=== PATIENT | female | born 1965 | race Caucasian/White ===

== ENCOUNTER → 2017-07-04 | Outpatient (CLI) | payer BC ==
--- NOTE | 2017-07-05 09:46 | MM ---
Reason for exam: screening (asymptomatic). Last mammogram was performed 1 year and 3 months ago. History: Taking estrogen beginning at age 52. Physical Findings: A clinical breast exam by your physician is recommended on an annual basis and results should be correlated with mammographic findings. MG 3D Screening Mammo W/Cad Bilateral CC and MLO view(s) were taken. Prior study comparison: April 12, 2016, bilateral MG screening mammo w CAD. January 20, 2015, bilateral MG screening mammo w CAD. The breast tissue is heterogeneously dense. This may lower the sensitivity of mammography. No suspicious abnormality. No significant changes when compared with prior studies. ASSESSMENT: Negative, BI-RAD 1 RECOMMENDATION: Routine screening mammogram of both breasts in 1 year.
== END | disposition home or self-care (01) ==
LOC: RADMAMWWP 10:57
PROVIDERS: ATTEND Obstetrics & Gynecology
DX: Z12.31 Encounter for screening mammogram for malignant neoplasm of breast (principal)
CPT/HCPCS: 77063; G0202

== ENCOUNTER → 2018-09-09 | Outpatient (CLI) | payer BC ==
--- NOTE | 2018-09-10 11:56 | MM ---
Reason for exam: screening (asymptomatic). Last mammogram was performed 1 year and 2 months ago. History: Taking estrogen beginning at age 52. Physical Findings: A clinical breast exam by your physician is recommended on an annual basis and results should be correlated with mammographic findings. MG 3D Screening Mammo W/Cad Bilateral CC and MLO view(s) were taken. Prior study comparison: July 04, 2017, bilateral MG 3d screening mammo w/cad. April 12, 2016, bilateral MG screening mammo w CAD. The breast tissue is heterogeneously dense. This may lower the sensitivity of mammography. Stable benign calcifications in the left breast. There is no discrete abnormality. No significant changes when compared with prior studies. ASSESSMENT: Benign, BI-RAD 2 RECOMMENDATION: Routine screening mammogram of both breasts in 1 year.
== END | disposition home or self-care (01) ==
LOC: RADMAMWWP 08:22
PROVIDERS: ATTEND Obstetrics & Gynecology
DX: Z12.31 Encounter for screening mammogram for malignant neoplasm of breast (principal)
CPT/HCPCS: 77063; 77067

== ENCOUNTER → 2018-10-23 | Outpatient (CLI) | payer BC ==
--- NOTE | 2018-10-23 11:55 | XR ---
EXAMINATION TYPE: XR chest 2V DATE OF EXAM: 10/23/2018 COMPARISON: None INDICATION: Pneumonia TECHNIQUE: Frontal and lateral views of the chest are obtained. FINDINGS: The heart size is normal. The pulmonary vasculature is normal. The lungs are clear. IMPRESSION: 1. No acute pulmonary process.
== END | disposition home or self-care (01) ==
LOC: RADXRMAIN 11:23
PROVIDERS: ATTEND Family Medicine
DX: J18.9 Pneumonia, unspecified organism (principal)
CPT/HCPCS: 71046

== ENCOUNTER → 2019-05-23 | Outpatient (CLI) | payer BC | END | disposition home or self-care (01) | LOC: LABWHC1 14:16 | PROVIDERS: ATTEND Orthopaedic Surgery | DX: E55.9 Vitamin D deficiency, unspecified (principal) | CPT/HCPCS: 36415; 82306 ==

== ENCOUNTER → 2020-07-14 | Outpatient (CLI) | payer BC ==
--- NOTE | 2020-07-19 08:29 | MM ---
Reason for exam: screening (asymptomatic). Last mammogram was performed 1 year and 10 months ago. History: Taking estrogen beginning at age 52. Physical Findings: A clinical breast exam by your physician is recommended on an annual basis and results should be correlated with mammographic findings. MG 3D Screening Mammo W/Cad Bilateral CC and MLO view(s) were taken. Prior study comparison: September 09, 2018, bilateral MG 3d screening mammo w/cad. July 04, 2017, bilateral MG 3d screening mammo w/cad. The breast tissue is extremely dense which could obscure a lesion on mammography. No significant changes when compared with prior studies. ASSESSMENT: Benign, BI-RAD 2 RECOMMENDATION: Routine screening mammogram of both breasts in 1 year.
== END | disposition home or self-care (01) ==
LOC: RADMAMWWP 11:22
PROVIDERS: ATTEND Obstetrics & Gynecology
DX: Z12.31 Encounter for screening mammogram for malignant neoplasm of breast (principal)
CPT/HCPCS: 77063; 77067

== ENCOUNTER → 2021-09-05 | Outpatient (CLI) | payer BC ==
--- NOTE | 2021-09-06 11:49 | MM ---
Reason for exam: screening (asymptomatic). Last mammogram was performed 1 year and 2 months ago. History: Taking estrogen beginning at age 52. Physical Findings: A clinical breast exam by your physician is recommended on an annual basis and results should be correlated with mammographic findings. MG 3D Screening Mammo W/Cad Bilateral CC and MLO view(s) were taken. Prior study comparison: July 14, 2020, bilateral MG 3d screening mammo w/cad. September 09, 2018, bilateral MG 3d screening mammo w/cad. The breast tissue is heterogeneously dense. This may lower the sensitivity of mammography. There are benign appearing round calcifications in the left breast. There is no discrete abnormality. ASSESSMENT: Benign, BI-RAD 2 RECOMMENDATION: Routine screening mammogram of both breasts in 1 year.
== END | disposition home or self-care (01) ==
LOC: RADMAMWWP 11:23
PROVIDERS: ATTEND Obstetrics & Gynecology
DX: Z12.31 Encounter for screening mammogram for malignant neoplasm of breast (principal)
CPT/HCPCS: 77063; 77067

== ENCOUNTER 2023-07-18 02:18 | Observation (INO) | payer BC ==
--- NOTE | 2023-07-18 02:54 | ED ---
Abdominal Pain HPI - General Chief Complaint: Abdominal Pain Stated Complaint: Abd Pain Time Seen by Provider: 07/18/23 02:28 Source: patient, RN notes reviewed, old records reviewed Mode of arrival: wheelchair Limitations: no limitations - History of Present Illness Initial Comments: This is a 58-year-old female to the emergency room today for evaluation. Patient is today for evaluation of left lower quadrant abdominal pain significant left-sided abdominal pain with radiation to the groin. Radiation to the back. No fevers mild nausea no diarrhea no dysuria. Patient has had multiple substances abdominal pain this week but this is the worst event. No prior evaluation. Patient denies any fevers or other complaint. Patient is in significant distress with severe uncontrolled pain MD Complaint: abdominal pain -: week(s) Location: LLQ, suprapubic Radiation: suprapubic, L flank Migration to: epigastric Severity: severe Severity scale (1-10): 8 Quality: cramping, stabbing Consistency: intermittent Improves With: nothing Worsens With: nothing Associated Symptoms: nausea Treatments Prior to Arrival: other (0) - Related Data Home Medications Medication Instructions Recorded Confirmed Bentyl (Unknown Dose) 1 tab PO DAILY PRN 07/18/23 07/18/23 Desloratadine [Clarinex] 5 mg PO DAILY 07/18/23 07/18/23 Fremanezumab-Vfrm [Ajovy 225 mg SQ QMONTHLY 07/18/23 07/18/23 Autoinjector] Previous Rx's Medication Instructions Recorded HYDROcodone/APAP 5-325MG [Wilmar 1 tab PO Q6HR PRN 3 Days #12 tab 07/19/23 5-325] Ondansetron Odt [Zofran Odt] 4 mg PO Q8HR PRN 3 Days #9 tab 07/19/23 cephALEXin [Keflex] 750 mg PO Q12HR 7 Days #14 cap 07/19/23 Allergies Allergy/AdvReac Type Severity Reaction Status Date / Time No Known Allergies Allergy Verified 07/18/23 09:15 Review of Systems ROS Statement: Those systems with pertinent positive or pertinent negative responses have been documented in the HPI. ROS Other: All systems not noted in ROS Statement are negative. Past Medical History Additional Past Medical History / Comment(s): IBS History of Any Multi-Drug Resistant Organisms: None Reported Past Surgical History: Appendectomy, Cholecystectomy Smoking Status: Never smoker Past Alcohol Use History: Occasional Past Drug Use History: None Reported General Exam Limitations: no limitations General appearance: alert, in no apparent distress, anxious Head exam: Present: atraumatic, normocephalic, normal inspection Eye exam: Present: normal appearance, PERRL, EOMI. Absent: scleral icterus, conjunctival injection, periorbital swelling ENT exam: Present: normal exam, mucous membranes moist Neck exam: Present: normal inspection. Absent: tenderness, meningismus, lymphadenopathy Respiratory exam: Present: normal lung sounds bilaterally. Absent: respiratory distress, wheezes, rales, rhonchi, stridor Cardiovascular Exam: Present: regular rate, normal rhythm, normal heart sounds. Absent: systolic murmur, diastolic murmur, rubs, gallop, clicks GI/Abdominal exam: Present: soft, normal bowel sounds. Absent: distended, te nderness, guarding, rebound, rigid Extremities exam: Present: normal inspection, full ROM, normal capillary refill. Absent: tenderness, pedal edema, joint swelling, calf tenderness Back exam: Present: normal inspection Neurological exam: Present: alert, oriented X3, CN II-XII intact Psychiatric exam: Present: normal affect, normal mood Skin exam: Present: warm, dry, intact, normal color. Absent: rash Course Vital Signs 07/18/23 07/18/23 07/18/23 02:23 04:26 05:33 Temperature 98 F Pulse Rate 86 90 96 Respiratory 18 16 16 Rate Blood Pressure 136/82 131/72 113/60 O2 Sat by Pulse 98 94 L 100 Oximetry 07/18/23 07:44 Temperature Pulse Rate 90 Respiratory 16 Rate Blood Pressure 93/61 O2 Sat by Pulse 100 Oximetry - Reevaluation(s) Reevaluation #1: 07/18/23 05:37 Medical record is reviewed Reevaluation #2: 07/18/23 05:37 Patient symptoms are improving Reevaluation #3: Patient informed results and questions answered Reevaluation #4: 07/18/23 05:37 Was pt. sent in by a medical professional or institution (, PA, MENTALLY RETARDED TEACHER, urgent care, hospital, or longterm...) When possible be specific @ -no Did you speak to anyone other than the patient for history (EMS, parent, family, police, friend...)? What history was obtained from this source @ -no Did you review nursing and triage notes (agree or disagree)? Why? @ -agree Are old charts reviewed (outside hosp., previous admission, EMS record, old EKG, old radiological studies, urgent care reports/EKG's, longterm records)? Report findings @ -yes Differential Diagnosis (chest pain, altered mental status, abdominal pain women, abdominal pain men, vaginal bleeding, weakness, fever, dyspnea, syncope, headache, dizziness, GI bleed, back pain, seizure, CVA, palpatations, mental health, musculoskeletal)? @ -prior EKG interpreted by me (3pts min.). @ -no X-rays interpreted by me (1pt min.). @ -no CT interpreted by me (1pt min.). @ -yes U/S interpreted by me (1pt. min.). @ -no What testing was considered but not performed or refused? (CT, X-rays, U/S, labs)? Why? @ -none What meds were considered but not given or refused? Why? @ -none Did you discuss the management of the patient with other professionals (professionals i.e. , PA, MENTALLY RETARDED TEACHER, lab, RT, psych nurse, social media manager, immigration lawyer, teacher, commercial loan officer, medical case manager)? Give summary @ -no Was smoking cessation discussed for >3mins.? @ -no Was critical care preformed (if so, how long)? @ -no Were there social determinants of health that impacted care today? How? (Homelessness, low income, unemployed, alcoholism, drug addiction, transportation, low edu. Level, literacy, decrease access to med. care, group home, rehab)? @ -none Was there de-escalation of care discussed even if they declined (Discuss DNR or withdrawal of care, Hospice)? DNR status @ -no What co-morbidities impacted this encounter? (DM, HTN, Smoking, COPD, CAD, Cancer, CVA, ARF, Chemo, Hep., AIDS, mental health diagnosis, sleep apnea, morbid obesity)? @ -none Was patient admitted / discharged? Hospital course, mention meds given and route, prescriptions, significant lab abnormalities, going to OR and other pertinent info. @ - 58 female to the emergency department for evaluation severe abdominal pain with kidney stone. Significantly large kidney stone with urinary tract infection. Will be admitted for IV antibiotics pain control and urology to see and treat Admitted Undiagnosed new problem with uncertain prognosis? @ -no Drug Therapy requiring intensive monitoring for toxicity (Heparin, Nitro, Insulin, Cardizem)? @ -no Were any procedures done? @ -no Diagnosis/symptom? @ -UTI, kidney stone with obstruction and hydronephrosis Acute, or Chronic, or Acute on Chronic? @ -Acute Uncomplicated (without systemic symptoms) or Complicated (systemic symptoms)? @ -Complicated Side effects of treatment? @ -no Exacerbation, Progression, or Severe Exacerbation? @ -exacerbation Poses a threat to life or bodily function? How? (Chest pain, [place], [place], pneumonia, PE, COPD, DKA, ARF, appy, cholecystitis, CVA, Diverticulitis, Homicidal, Suicid al, threat to staff... and all critical care pts) @ -yes with possible septic kidney stone Reevaluation #5: 07/18/23 05:37 Differential Abdominal Pain Women: Appendicitis, Cholecystitis, diverticulosis, ischemic bowel, pancreatitis, hepatitis, UTI, gastroenteritis, AAA, incarcerated hernia, bowel obstruction, constipation, inflammatory bowel, hepatitis, peptic ulcer disease, splenic infarction, perforated viscus, vulvitis, ovarian torsion, PID, kidney stone, placenta abruption, this is not meant to be an all-inclusive list - Consultations Consultation #1: Spoke with admitting physicians who agreed to admit patient Consultation #2: Spoke with Dr. Oneil urology who will see the patient Medical Decision Making - Medical Decision Making 58 female to the emergency department for evaluation severe abdominal pain with kidney stone. Significantly large kidney stone with urinary tract infection. Will be admitted for IV antibiotics pain control and urology to see and treat - Lab Data Result diagrams: 07/19/23 06:14 07/19/23 06:14 Lab Results 07/18/23 07/18/23 07/18/23 Range/Units 02:50 02:50 02:50 WBC 11.2 H (3.8-10.6) k/uL RBC 4.42 (3.80-5.40) m/uL Hgb 13.5 (11.4-16.0) gm/dL Hct 41.1 (34.0-46.0) % MCV 93.0 (80.0-100.0) fL MCH 30.7 (25.0-35.0) pg MCHC 32.9 (31.0-37.0) g/dL RDW 12.6 (11.5-15.5) % Plt Count 218 (150-450) k/uL MPV 7.4 Neutrophils % 76 % Lymphocytes % 17 % Monocytes % 5 % Eosinophils % 1 % Basophils % 0 % Neutrophils # 8.5 H (1.3-7.7) k/uL Lymphocytes # 1.9 (1.0-4.8) k/uL Monocytes # 0.5 (0-1.0) k/uL Eosinophils # 0.1 (0-0.7) k/uL Basophils # 0.0 (0-0.2) k/uL Sodium 139 (137-145) mmol/L Potassium 3.9 (3.5-5.1) mmol/L Chloride 105 (98-107) mmol/L Carbon Dioxide 23 (22-30) mmol/L Anion Gap 11 mmol/L BUN 24 H (7-17) mg/dL Creatinine 1.18 H (0.52-1.04) mg/dL Est GFR (CKD-EPI)AfAm 59 (>60 ml/min/1.73 sqM) Est GFR (CKD-EPI)NonAf 52 (>60 ml/min/1.73 sqM) Glucose 117 H (74-99) mg/dL Plasma Lactic Acid Dheeraj 0.7 (0.7-2.0) mmol/L Calcium 9.6 (8.4-10.2) mg/dL Total Bilirubin 0.6 (0.2-1.3) mg/dL AST 23 (14-36) U/L ALT 21 (4-34) U/L Alkaline Phosphatase 79 (38-126) U/L Total Protein 7.3 (6.3-8.2) g/dL Albumin 4.4 (3.5-5.0) g/dL Amylase 59 (30-110) U/L Lipase 100 (23-300) U/L Urine Color Urine Appearance (Clear) Urine pH (5.0-8.0) Ur Specific [place] (1.001-1.035) Urine Protein (Negative) Urine Glucose (UA) (Negative) Urine Ketones (Negative) Urine Blood (Negative) Urine Nitrite (Negative) Urine Bilirubin (Negative) Urine Urobilinogen (<2.0) mg/dL Ur Leukocyte Esterase (Negative) Urine RBC (0-5) /hpf Urine WBC (0-5) /hpf Ur Squamous Epith Cells (0-4) /hpf Urine Bacteria (None) /hpf Urine Mucus (None) /hpf 07/18/23 Range/Units 04:18 WBC (3.8-10.6) k/uL RBC (3.80-5.40) m/uL Hgb (11.4-16.0) gm/dL Hct (34.0-46.0) % MCV (80.0-100.0) fL MCH (25.0-35.0) pg MCHC (31.0-37.0) g/dL RDW (11.5-15.5) % Plt Count (150-450) k/uL MPV Neutrophils % % Lymphocytes % % Monocytes % % Eosinophils % % Basophils % % Neutrophils # (1.3-7.7) k/uL Lymphocytes # (1.0-4.8) k/uL Monocytes # (0-1.0) k/uL Eosinophils # (0-0.7) k/uL Basophils # (0-0.2) k/uL Sodium (137-145) mmol/L Potassium (3.5-5.1) mmol/L Chloride (98-107) mmol/L Carbon Dioxide (22-30) mmol/L Anion Gap mmol/L BUN (7-17) mg/dL Creatinine (0.52-1.04) mg/dL Est GFR (CKD-EPI)AfAm (>60 ml/min/1.73 sqM) Est GFR (CKD-EPI)NonAf (>60 ml/min/1.73 sqM) Glucose (74-99) mg/dL Plasma Lactic Acid Dheeraj (0.7-2.0) mmol/L Calcium (8.4-10.2) mg/dL Total Bilirubin (0.2-1.3) mg/dL AST (14-36) U/L ALT (4-34) U/L Alkaline Phosphatase (38-126) U/L Total Protein (6.3-8.2) g/dL Albumin (3.5-5.0) g/dL Amylase (30-110) U/L Lipase (23-300) U/L Urine Color Colorless Urine Appearance Clear (Clear) Urine pH 6.0 (5.0-8.0) Ur Specific [place] 1.036 H (1.001-1.035) Urine Protein Negative (Negative) Urine Glucose (UA) Negative (Negative) Urine Ketones 1+ H (Negative) Urine Blood Moderate H (Negative) Urine Nitrite Positive H (Negative) Urine Bilirubin Negative (Negative) Urine Urobilinogen <2.0 (<2.0) mg/dL Ur Leukocyte Esterase Moderate H (Negative) Urine RBC 37 H (0-5) /hpf Urine WBC 26 H (0-5) /hpf Ur Squamous Epith Cells 5 H (0-4) /hpf Urine Bacteria Rare H (None) /hpf Urine Mucus Rare H (None) /hpf - EKG Data -: EKG Interpreted by Me (EKG is sinus tachycardia 104 CA 190 QRS 73 QTC 392) - Radiology Data Radiology results: report reviewed (CT head and pelvis is positive for kidney s tone obstruction with hydronephrosis), image reviewed Disposition Clinical Impression: Left ureteral stone, Abdominal pain, UTI (urinary tract infection) Disposition: ADMITTED IP TO THIS HOSP Condition: Fair Is patient prescribed a controlled substance at d/c from ED?: No Time of Disposition: 07:20
[2023-07-18] MEDS ORDERED: ONDANSETRON 4 MG/2 ML VIAL IVP STA (03:36)
[2023-07-18] MEDS ORDERED: SODIUM CHLORIDE 0.9% 1,000 ML IV STA (03:36)
[2023-07-18] MEDS ORDERED: PANTOPRAZOLE 40 MG/10 ML VIAL IVP STA (03:36)
[2023-07-18] MEDS ORDERED: MORPHINE SULFATE 4 MG/ML SYRINGE IVP STA (03:37)
[2023-07-18 03:46] LABS: Basophils % (A) 0 %; Eosinophils # (A) 0.1 k/uL (0-0.7); Eosinophils % (A) 1 %; HCT 41.1 % (34.0-46.0); HGB 13.5 gm/dL (11.4-16.0); Lymphocytes # (A) 1.9 k/uL (1.0-4.8); Lymphocytes % (A) 17 %; MCH 30.7 pg (25.0-35.0); MCHC 32.9 g/dL (31.0-37.0); Mean Platelet Volume 7.4; Monocytes # (A) 0.5 k/uL (0-1.0); Monocytes % (A) 5 %; Neutrophils # (A) 8.5 k/uL (1.3-7.7); Neutrophils % (A) 76 %; Platelet Count 218 k/uL (150-450); RBC 4.42 m/uL (3.80-5.40); RDW 12.6 % (11.5-15.5); WBC 11.2 k/uL (3.8-10.6)
[2023-07-18 03:50] LABS: ALT 21 U/L (4-34); AST 23 U/L (14-36); African American GFR (CKD) 59 (>60 ml/min/1.73 sqM); Albumin 4.4 g/dL (3.5-5.0); Alkaline Phosphatase 79 U/L (38-126); Amylase 59 U/L (30-110); Anion Gap 11 mmol/L; Blood Urea Nitrogen 24 mg/dL (7-17); Calcium 9.6 mg/dL (8.4-10.2); Carbon Dioxide 23 mmol/L (22-30); Chloride 105 mmol/L (98-107); Glucose 117 mg/dL (74-99); Lipase 100 U/L (23-300); Non-African American GFR(CKD) 52 (>60 ml/min/1.73 sqM); Potassium 3.9 mmol/L (3.5-5.1); Sodium 139 mmol/L (137-145); Total Bilirubin 0.6 mg/dL (0.2-1.3); Total Protein 7.3 g/dL (6.3-8.2)
[2023-07-18] MEDS ORDERED: HYDROmorphone 1 MG/ML 1 ML SYRINGE IVP STA (03:58)
[2023-07-18] MEDS ORDERED: KETOROLAC 15 MG/ML 1 ML VIAL IVP STA (03:59)
[2023-07-18 04:34] LABS: Appearance,Urine Clear (Clear); Bacteria,Urine Rare /hpf; Bilirubin,Urine Negative (Negative); Blood,Urine Moderate (Negative); Color,Urine Colorless; Glucose,Urine (UA) Negative (Negative); Ketones,Urine 1+ (Negative); Leukocyte Esterase,Urine Moderate (Negative); Mucus,Urine Rare /hpf; Nitrite,Urine Positive (Negative); Protein,Urine Negative (Negative); RBC,Urine 37 /hpf (0-5); Specific Gravity,Urine 1.036 (1.001-1.035); Squamous Epithelial Cell,Urine 5 /hpf (0-4); Urobilinogen,Urine <2.0 mg/dL (<2.0); WBC,Urine 26 /hpf (0-5)
--- NOTE | 2023-07-18 07:10 | CT ---
EXAMINATION TYPE: CT abdomen pelvis w con DATE OF EXAM: 07/18/2023 COMPARISON: None HISTORY: Pain CONTRAST: CT scan of the abdomen and pelvis is performed without Oral Contrast and with IV Contrast, patient in jected with 100 mL of Isovue 300. FINDINGS: LUNG BASES-: No visible nodule. No infiltrate. LIVER/GB: The gallbladder surgically absent. No space occupying hepatic lesion. Biliary tree is of normal caliber. PANCREAS: No inflammation. No distinct mass. SPLEEN: No splenic enlargement. No lesion seen. ADRENALS: No nodule. No thickening. KIDNEYS/BLADDER: Distal left ureteral calculus measuring 10 x 4 mm approximately 7.5 cm from the left UVJ results in moderate left-sided hydroureter ureteral nephrosis.. Mild left renal edema and perine phric stranding. The right kidney is free of hydronephrosis or nephrolithiasis. No renal masses are d etected. BOWEL: Normal appendix. Normal bowel caliber. No inflammation. GENITAL ORGANS: No gross abnormality. LYMPH NODES: No greater than 1cm abdominal or pelvic lymph nodes are appreciated. AORTA: No significant abnormality. OSSEOUS STRUCTURES: No significant abnormality is seen. OTHER: No significant additional abnormality is seen. IMPRESSION: 1. Distal left ureteral calculus measuring 10 x 4 mm approximately 7.5 cm from the left UVJ results i n moderate left-sided hydrouretero nephrosis. Mild left renal edema and perinephric stranding.
[2023-07-18] MEDS ORDERED: KETOROLAC 15 MG/ML 1 ML VIAL IVP PRN (07:30)
[2023-07-18] MEDS ORDERED: HYDROmorphone 1 MG/ML 1 ML SYRINGE IVP PRN (07:30)
[2023-07-18] MEDS ORDERED: NALOXONE 0.4 MG/ML 1 ML VIAL IV PRN (07:30)
[2023-07-18] MEDS ORDERED: ONDANSETRON 4 MG/2 ML VIAL IVP PRN (07:30)
[2023-07-18] MEDS: SODIUM CHLORIDE 0.9% 1,000 ML IV SCH ×2 (07:51→18:51)
[2023-07-18] MEDS: PANTOPRAZOLE 40 MG/10 ML VIAL IV SCH (07:52)
--- NOTE | 2023-07-18 14:06 | P.HPIM ---
History of Present Illness H&P Date: 07/18/23 History of present illness; patient is a 58-year-old lady with past medical hist ory significant for irritable bowel syndrome who presented the ER because of abdominal pain. Patient stated that she has been having intermittent abdominal pain for the last week, located in the left lower quadrant, radiating down her groin and back. Denies any fever or chills. Complaining of nausea. Denies any increased frequency of urination, denies hematuria. Denies any chest pain or shortness of breath. Because of abdominal pain, patient presented to the ER. Initial lab work done in the ER showed WBC 11.2, hemoglobin 13.5, platelet count 218, sodium 100 and 3.9, BUN 24, creatinine 1.18, glucose 117 UA done showed patient nitrate positive, urine WBC 26, leukocyte Estrace positive CT abdominal and pelvis done showed distal left ureter calculus measuring 10x4 millimeter patient admitted to medicine service REVIEW OF SYSTEMS: CONSTITUTIONAL: No fever, no malaise, no fatigue. HEENT: No recent visual problems or hearing problems. Denied any sore throat. CARDIOVASCULAR: No chest pain, orthopnea, PND, no palpitations, no syncope. PULMONARY: No shortness of breath, no cough, no hemoptysis. GASTROINTESTINAL: As mentioned in HPI NEUROLOGICAL: No headaches, no weakness, no numbness. HEMATOLOGICAL: Denies any bleeding or petechiae. GENITOURINARY: As mentioned in HPI MUSCULOSKELETAL/RHEUMATOLOGICAL: Denies any joint pain, swelling, or any muscle pain. ENDOCRINE: Denies any polyuria or polydipsia. The rest of the 14-point review of systems is negative. PHYSICAL EXAMINATION: GENERAL: The patient is alert and oriented x3, not in any acute distress. Well developed, well nourished. HEENT: Pupils are round and equally reacting to light. EOMI. No scleral icterus. No conjunctival pallor. Normocephalic, atraumatic. No pharyngeal erythema. No thyromegaly. CARDIOVASCULAR: S1 and S2 present. No murmurs, rubs, or gallops. PULMONARY: Chest is clear to auscultation, no wheezing or crackles. ABDOMEN: Soft, nontender, nondistended, normoactive bowel sounds. No palpable organomegaly. MUSCULOSKELETAL: No joint swelling or deformity. EXTREMITIES: No cyanosis, clubbing, or pedal edema. NEUROLOGICAL: Gross neurological examination did not reveal any focal deficits. SKIN: No rashes. Assessment and plan Left ureteric calculus Left sided hydronephrosis Acute pyelonephritis Monitor vital signs Monitor CBC Monitor CMP Continue telemetry monitoring Follow-up urine cultures Continue IV fluids Continue IV Rocephin Consulted urology Labs and medication were reviewed.. Continue same treatment. Continue with symptomatic treatment. Resume home medication. Monitor labs and vitals. DVT and GI prophylaxis. Further recommendations as per clinical course of the patient Dictation was produced using [employer]! dictation software. please excuse any grammatical, word or spelling errors. Past Medical History Additional Past Medical History / Comment(s): IBS History of Any Multi-Drug Resistant Organisms: None Reported Past Surgical History: Appendectomy, Cholecystectomy, Orthopedic Surgery Additional Past Surgical History / Comment(s): Left foot Smoking Status: Never smoker Past Alcohol Use History: Occasional Past Drug Use History: None Reported Medications and Allergies Home Medications Medication Instructions Recorded Confirmed Type Bentyl (Unknown Dose) 1 tab PO DAILY PRN 07/18/23 07/18/23 History Desloratadine [Clarinex] 5 mg PO DAILY 07/18/23 07/18/23 History Fremanezumab-Vfrm [Ajovy 225 mg SQ QMONTHLY 07/18/23 07/18/23 History Autoinjector] Allergies Allergy/AdvReac Type Severity Reaction Status Date / Time No Known Allergies Allergy Verified 07/18/23 09:15 Physical Exam Vitals: Vital Signs Temp Pulse Resp BP Pulse Ox 07/18/23 08:01 98 F 90 16 93/61 100 07/18/23 07:44 90 16 93/61 100 07/18/23 05:33 96 16 113/60 100 07/18/23 04:26 90 16 131/72 94 L 07/18/23 02:23 98 F 86 18 136/82 98 Intake and Output 07/17/23 07/18/23 07/18/23 22:59 06:59 14:59 Other: Weight 68.039 kg 68.039 kg Results CBC & Chem 7: 07/18/23 02:50 07/18/23 02:50 Labs: Abnormal Lab Results - Last 24 Hours (Table) 07/18/23 07/18/23 07/18/23 Range/Units 02:50 02:50 04:18 WBC 11.2 H (3.8-10.6) k/uL Neutrophils # 8.5 H (1.3-7.7) k/uL BUN 24 H (7-17) mg/dL Creatinine 1.18 H (0.52-1.04) mg/dL Glucose 117 H (74-99) mg/dL Ur Specific [place] 1.036 H (1.001-1.035) Urine Ketones 1+ H (Negative) Urine Blood Moderate H (Negative) Urine Nitrite Positive H (Negative) Ur Leukocyte Esterase Moderate H (Negative) Urine RBC 37 H (0-5) /hpf Urine WBC 26 H (0-5) /hpf Ur Squamous Epith Cells 5 H (0-4) /hpf Urine Bacteria Rare H (None) /hpf Urine Mucus Rare H (None) /hpf Thrombosis Risk Factor Assmnt - Choose All That Apply Any of the Below Risk Factors Present?: Yes Each Factor Represents 1 point: Age 41-60 years, Obesity (BMI >25) Other Risk Factors: No Other congenital or acquired thrombophilia - If yes, enter type in comment: No Thrombosis Risk Factor Assessment Total Risk Factor Score: 2 Thrombosis Risk Factor Assessment Level: Low Risk
[2023-07-18] MEDS ORDERED: IV FLUID CONTINUATION 1,000 ML IV ONE (15:49)
[2023-07-18] MEDS ORDERED: ONDANSETRON 4 MG/2 ML VIAL IVP ONE (16:00)
[2023-07-18] MEDS ORDERED: fentaNYL (PF) 50 MCG/ML 2 ML AMP ONE (17:02)
[2023-07-18] MEDS ORDERED: MIDAZOLAM 2 MG/2 ML VIAL ONE (17:02)
[2023-07-18] MEDS ORDERED: PROPOFOL 10 MG/ML 20 ML VIAL IV ONE (17:02)
--- NOTE | 2023-07-18 17:13 | P.GSCN ---
History of Present Illness Consult date: 07/18/23 Reason for Consult: ureteral stone History of present illness: This is a 58-year-old female admitted to the hospital with UTI and intractable pain secondary to a 10 mm left-sided midureteral stone. She indicated she's been having intermittent flank pain for the past week which has gotten significantly worse today. The pain is associated with nausea but denies any dysuria or gross hematuria. Denies any fevers or chills. No previous history of kidney stones. In the ER she underwent a CT which showed evidence of a 10 mm left-sided midureteral stone with hydronephrosis. Her urinalysis was concerning for UTI Review of Systems - Constitutional Denies fever, Denies weight loss - EENT Ears, nose, mouth and throat: Denies dysphagia - Cardiovascular Denies chest pain, Denies shortness of breath - Respiratory Denies cough, Denies 7 - Gastrointestinal Reports as per HPI - Genitourinary Genitourinary: Reports flank pain, Denies dysuria, Denies hematuria - Neurological Denies headaches, Denies syncope Past Medical History Additional Past Medical History / Comment(s): IBS History of Any Multi-Drug Resistant Organisms: None Reported Past Surgical History: Appendectomy, Cholecystectomy, Orthopedic Surgery Additional Past Surgical History / Comment(s): Left foot Smoking Status: Never smoker Past Alcohol Use History: Occasional Past Drug Use History: None Reported Medications and Allergies Home Medications Medication Instructions Recorded Confirmed Type Bentyl (Unknown Dose) 1 tab PO DAILY PRN 07/18/23 07/18/23 History Desloratadine [Clarinex] 5 mg PO DAILY 07/18/23 07/18/23 History Fremanezumab-Vfrm [Ajovy 225 mg SQ QMONTHLY 07/18/23 07/18/23 History Autoinjector] Allergies Allergy/AdvReac Type Severity Reaction Status Date / Time No Known Allergies Allergy Verified 07/18/23 09:15 Surgical - Exam Vital Signs Temp Pulse Resp BP Pulse Ox 98 F 86 18 136/82 98 07/18/23 02:23 07/18/23 02:23 07/18/23 02:23 07/18/23 02:23 07/18/23 02:23 - General no distress, moderate pain - Eyes normal ocular movement, no pale - ENT normal nares, normal mucosa - Respiratory normal expansion, normal respiratory effort - Abdomen Abdomen: soft, non tender - Psychiatric oriented to time, oriented to person, oriented to place Results - Labs 07/18/23 02:50 07/18/23 02:50 Abnormal Lab Results - Last 24 Hours (Table) 07/18/23 07/18/23 07/18/23 Range/Units 02:50 02:50 04:18 WBC 11.2 H (3.8-10.6) k/uL Neutrophils # 8.5 H (1.3-7.7) k/uL BUN 24 H (7-17) mg/dL Creatinine 1.18 H (0.52-1.04) mg/dL Glucose 117 H (74-99) mg/dL Ur Specific [place] 1.036 H (1.001-1.035) Urine Ketones 1+ H (Negative) Urine Blood Moderate H (Negative) Urine Nitrite Positive H (Negative) Ur Leukocyte Esterase Moderate H (Negative) Urine RBC 37 H (0-5) /hpf Urine WBC 26 H (0-5) /hpf Ur Squamous Epith Cells 5 H (0-4) /hpf Urine Bacteria Rare H (None) /hpf Urine Mucus Rare H (None) /hpf Diabetes panel 07/18/23 Range/Units 02:50 Sodium 139 (137-145) mmol/L Potassium 3.9 (3.5-5.1) mmol/L Chloride 105 (98-107) mmol/L Carbon Dioxide 23 (22-30) mmol/L BUN 24 H (7-17) mg/dL Creatinine 1.18 H (0.52-1.04) mg/dL Glucose 117 H (74-99) mg/dL Calcium 9.6 (8.4-10.2) mg/dL AST 23 (14-36) U/L ALT 21 (4-34) U/L Alkaline Phosphatase 79 (38-126) U/L Total Protein 7.3 (6.3-8.2) g/dL Albumin 4.4 (3.5-5.0) g/dL Calcium panel 07/18/23 Range/Units 02:50 Calcium 9.6 (8.4-10.2) mg/dL Albumin 4.4 (3.5-5.0) g/dL Pituitary panel 07/18/23 Range/Units 02:50 Sodium 139 (137-145) mmol/L Potassium 3.9 (3.5-5.1) mmol/L Chloride 105 (98-107) mmol/L Carbon Dioxide 23 (22-30) mmol/L BUN 24 H (7-17) mg/dL Creatinine 1.18 H (0.52-1.04) mg/dL Glucose 117 H (74-99) mg/dL Calcium 9.6 (8.4-10.2) mg/dL Adrenal panel 07/18/23 Range/Units 02:50 Sodium 139 (137-145) mmol/L Potassium 3.9 (3.5-5.1) mmol/L Chloride 105 (98-107) mmol/L Carbon Dioxide 23 (22-30) mmol/L BUN 24 H (7-17) mg/dL Creatinine 1.18 H (0.52-1.04) mg/dL Glucose 117 H (74-99) mg/dL Calcium 9.6 (8.4-10.2) mg/dL Total Bilirubin 0.6 (0.2-1.3) mg/dL AST 23 (14-36) U/L ALT 21 (4-34) U/L Alkaline Phosphatase 79 (38-126) U/L Total Protein 7.3 (6.3-8.2) g/dL Albumin 4.4 (3.5-5.0) g/dL Assessment and Plan Assessment: 58-year-old female with a 10 mm left-sided ureteral stone and UTI. She is having pain secondary to her stone. Discussed with her given the pain and the UTI I recommend proceeding stent insertion. Discussed this is not a definitive stone management and after stent insertion the next step is to proceed with left- sided ureteroscopy with holmium laser in 2-3 weeks once her UTI resolvs. Risk benefits and rational surgery was discussed in detail Plan: OR for left-sided stent insertion Continue ceftriaxone
[2023-07-18] MEDS ORDERED: SODIUM CHLORIDE 0.9% 50 ML with ceFAZolin 2,000 MG IV ONE ×2 (17:24)
--- NOTE | 2023-07-18 17:36 | P.OP ---
Date of Procedure: 07/18/23 Preoperative Diagnosis: Left ureteral stone Postoperative Diagnosis: Same Procedure(s) Performed: Cystoscopy, left stent insertion Implants: 6-Thai by 24 cm stent in the left ureter Anesthesia: MAC Surgeon: Heath Oneil Estimated Blood Loss (ml): 1 Pathology: none sent Condition: stable Disposition: PACU Indications for Procedure: This is a 58-year-old female admitted to the hospital with UTI and intractable pain secondary to a 10 mm left-sided midureteral stone. She indicated she's been having intermittent flank pain for the past week which has gotten significantly worse today. The pain is associated with nausea but denies any dysuria or gross hematuria. Denies any fevers or chills. No previous history of kidney stones. In the ER she underwent a CT which showed evidence of a 10 mm left-sided midureteral stone with hydronephrosis. Her urinalysis was concerning for UTI. Option of left-sided stent insertion was discussed with her which she agreed. aware of the risk benefit and rationale of doing surgery Description of Procedure: Patient brought to the operating room, general anesthesia was induced. She was prepped and draped is sterile fashion and placed in dorsal lithotomy position. Cystoscopy fitted 21 sheath was inserted per urethra, cystoscopy was performed which showed no abnormality within the bladder. Then the left ureteral orifice was identified and intubated with a sensor wire. Next a ureteral stent was passed over the wire, the proximal curl was visualized on fluoroscopy and the distal curl was visualized using the cystoscope. The bladder was emptied at the end of the case. Patient tolerated procedure well was taken to recovery in stable condition
--- NOTE | 2023-07-18 17:47 | FL ---
Intraoperative/procedural fluoroscopic services were provided for left ureteral stent insertion. Tota l fluoroscopy time is 11.1 seconds with a total of 3 submitted images to PACS. Total DAP 0.5525 Gycm2 . Please see the operative note for further details.
[2023-07-19] MEDS: SODIUM CHLORIDE 0.9% 1,000 ML IV SCH ×2 (00:32→06:45)
--- NOTE | 2023-07-19 07:13 | P.PN ---
Subjective Progress Note Date: 07/19/23 No acute overnight events, underwent left stent insertion denies any pain is having some urinary frequency. Objective - Vital Signs Vital signs: Vital Signs Temp 97.8 F 07/19/23 02:00 Pulse 69 07/19/23 02:00 Resp 15 07/19/23 02:00 BP 121/68 07/19/23 02:00 Pulse Ox 98 07/19/23 02:00 FiO2 Intake & Output 07/18/23 07/19/23 07/19/23 18:59 06:59 18:59 Intake Total 1965 Output Total 1 Balance 1964 Weight 68.039 kg Intake: IV 925 Intake, IV Titration 1040 Amount Sodium Chloride 0.9% 1, 1040 000 ml @ 130 mls/hr IV . Q7H42M [facility] Rx#:[id number] Output: Estimated Blood Loss 1 Other: Voiding Method Toilet Toilet # Voids 1 3 - Constitutional General appearance: Present: no acute distress - Gastrointestinal General gastrointestinal: Present: soft. Absent: distended, tenderness - Psychiatric Psychiatric: Present: A&O x's 3 - Labs CBC & Chem 7: 07/18/23 02:50 07/18/23 02:50 Assessment and Plan Assessment: 58-year-old female with a 10 mm left-sided ureteral stone and UTI. She is having pain secondary to her stone. Underwent left-sided stent insertion yesterday -Okay for discharge from your standpoint after she receives her a.m. ceftriaxone dose. Discharge home on 1 week of PO antibiotics -We'll arrange for outpatient left-sided ureteroscopy with holmium laser and stent removal in 2-3 weeks
[2023-07-19] MEDS: PANTOPRAZOLE 40 MG/10 ML VIAL IV SCH (08:22)
[2023-07-19 08:38] VITALS: BP 118/75; PULSE 88; RESP 16; TEMP 98.7
[2023-07-19 09:06] LABS: Basophils # (A) 0.03 X 10*3/uL (0.00-0.10); Basophils % (A) 0.5 %; Eosinophils # (A) 0.14 X 10*3/uL (0.04-0.35); Eosinophils % (A) 2.3 %; HCT 35.8 % (37.2-46.3); HGB 11.5 d/dL (12.0-15.0); Lymphocytes # (A) 2.34 X 10*3/uL (0.90-5.00); Lymphocytes % (A) 38.2 %; MCH 29.9 pg (27.0-32.0); MCHC 32.1 d/dL (32.0-37.0); Mean Platelet Volume 9.1 FL (9.5-12.2); Monocytes # (A) 0.47 X 10*3/uL (0.20-1.00); Monocytes % (A) 7.7 %; NRBC Per 100 WBC 0 X 10*3/uL (0.00-0.01); Neutrophils # (A) 3.14 X 10*3/uL (1.80-7.70); Neutrophils % (A) 51.1 %; Platelet Count 190 X 10*3/uL (140-440); RBC 3.85 X 10*6/uL (4.10-5.20); RDW 13.2 % (11.5-14.5); WBC 6.13 X 10*3/uL (4.50-10.00)
[2023-07-19 09:09] LABS: ALT 128 U/L (8-44); AST 70 U/L (13-35); Albumin 3.6 d/dL (3.8-4.9); Albumin/Globulin Ratio 1.71 Ratio (1.60-3.17); Alkaline Phosphatase 74 U/L (41-126); BUN/Creat Ratio 11.14 Ratio (12.00-20.00); Blood Urea Nitrogen 7.8 mg/dL (9.0-27.0); Calcium 8.6 mg/dL (8.7-10.3); Carbon Dioxide 24.6 mmol/L (21.6-31.8); Chloride 110 mmol/L (96-109); Globulin 2.1 d/dL (1.6-3.3); Glucose 94 mg/dL (70-110); Magnesium 2.1 mg/dL (1.5-2.4); Phosphorus 2.8 mg/dL (2.4-5.1); Potassium 4.3 mmol/L (3.5-5.5); Sodium 143 mmol/L (135-145); Total Bilirubin 0.4 mg/dL (0.3-1.2); Total Protein 5.7 d/dL (6.2-8.2)
[2023-07-19] MEDS ORDERED: ASPIRIN-ACET-CAFF 250-250-65MG 1 EACH TAB PO PRN (09:28)
[2023-07-19] MEDS: LORATADINE 10 MG TAB PO SCH (10:04)
--- NOTE | 2023-07-19 10:11 | P.DS ---
Providers Date of admission: 07/18/23 07:30 Expected date of discharge: 07/19/23 Attending physician: Herber Renae Consults: 07/18/23 07:30 Consult Physician Routine Consulting Provider: Heath Oneil Consult Reason/Comments: uti Do you want consulting provider notified?: Yes Primary care physician: Asaf [facility] Course: * 58-year-old lady with past medical history significant for irritable bowel syndrome who presented the ER because of abdominal pain. Patient stated that she has been having intermittent abdominal pain for the last week, located in the left lower quadrant, radiating down her groin and back. Denies any fever or chills. Complaining of nausea. Denies any increased frequency of urination, denies hematuria. Denies any chest pain or shortness of breath. Because of abdominal pain, patient presented to the ER. * Initial lab work done in the ER showed WBC 11.2, hemoglobin 13.5, platelet count 218, sodium 100 and 3.9, BUN 24, creatinine 1.18, glucose 117 * UA done showed patient nitrate positive, urine WBC 26, leukocyte Estrace positive * CT abdominal and pelvis done showed distal left ureter calculus measuring 10x4 millimeter * Patient was seen by urology during the hospital stay. Treated with IV Rocephin * Patient underwent cystoscopy with left ureteral stent placement * Postprocedure patient was monitored for 24 hours * Patient discharged home on oral antibiotic, antiemetics and pain control medications PHYSICAL EXAMINATION: GENERAL: The patient is alert and oriented x3, not in any acute distress. Well developed, well nourished. HEENT: Pupils are round and equally reacting to light. EOMI. No scleral icterus. No conjunctival pallor. Normocephalic, atraumatic. No pharyngeal erythema. No thyromegaly. CARDIOVASCULAR: S1 and S2 present. No murmurs, rubs, or gallops. PULMONARY: Chest is clear to auscultation, no wheezing or crackles. ABDOMEN: Soft, nontender, nondistended, normoactive bowel sounds. No palpable organomegaly. MUSCULOSKELETAL: No joint swelling or deformity. EXTREMITIES: No cyanosis, clubbing, or pedal edema. NEUROLOGICAL: Gross neurological examination did not reveal any focal deficits. SKIN: No rashes. Assessment: Assessment and plan Left ureteric calculus Left sided hydronephrosis Acute pyelonephritis Status post cystoscopy with stent placement Discharge on oral Keflex 750 mg twice a day Given pain control with [place], antiemetic Zofran Outpatient follow-up with urology Patient Condition at Discharge: Fair Plan - Discharge Summary Discharge Rx Participant: Yes New Discharge Prescriptions: New cephALEXin [Keflex] 750 mg PO Q12HR 7 Days #14 cap HYDROcodone/APAP 5-325MG [[place] 5-325] 1 tab PO Q6HR PRN 3 Days #12 tab PRN Reason: Pain Ondansetron Odt [Zofran Odt] 4 mg PO Q8HR PRN 3 Days #9 tab PRN Reason: Nausea Continue Desloratadine [Clarinex] 5 mg PO DAILY Fremanezumab-Vfrm [Ajovy Autoinjector] 225 mg SQ QMONTHLY Bentyl (Unknown Dose) 1 tab PO DAILY PRN PRN Reason: IBS Discharge Medication List Bentyl (Unknown Dose) 1 tab PO DAILY PRN 07/18/23 [History] Desloratadine [Clarinex] 5 mg PO DAILY 07/18/23 [History] Fremanezumab-Vfrm [Ajovy Autoinjector] 225 mg SQ QMONTHLY 07/18/23 [History] HYDROcodone/APAP 5-325MG [[place] 5-325] 1 tab PO Q6HR PRN 3 Days #12 tab 07/19/23 [Rx] Ondansetron Odt [Zofran Odt] 4 mg PO Q8HR PRN 3 Days #9 tab 07/19/23 [Rx] cephALEXin [Keflex] 750 mg PO Q12HR 7 Days #14 cap 07/19/23 [Rx] Follow up Appointment(s)/Referral(s): Heath Oneil MD [STAFF PHYSICIAN] - 1 Week Asaf Leal DO [Primary Care Provider] - 1-2 days Discharge Disposition: HOME SELF-CARE
== END 2023-07-19 12:48 | disposition home or self-care (01) ==
LOC: EC 02:18 → 1SOBS 07:30 → 6NMEDSUR 15:52
PROVIDERS: ADMIT Hospitalist; ATTEND Hospitalist
DX: N13.6 Pyonephrosis (principal); K58.9 Irritable bowel syndrome, unspecified; Z79.899 Other long term (current) drug therapy
CPT/HCPCS: 52332; 96376 ×2; 96361 ×3; 96366 ×2; 96365; 96375; 99285; 36415; 80053 ×2; 82150; 83605; 83690; 83735; 84100; 85025 ×2; 81001; 74177; G0378 ×2; C2625; C1769 ×3; J2270; J2405; J0690; J0696 ×2; J1170; J1885 ×2; C9113 ×2; Q9967

== ENCOUNTER → 2023-07-30 | Day surgery (SDC) | payer BC ==
[2023-07-27 08:49] VITALS: BMI 25.7
[~2023-07-30] MED LIST: DEXAMETHASONE SOD PHOSPHATE 4 MG/ML 1 ML VIAL IVP ONE; KETOROLAC 15 MG/ML 1 ML VIAL IVP ONE; KETOROLAC 15 MG/ML 1 ML VIAL ONE; LACTATED RINGERS 1,000 ML IV ONE; LIDOCAINE 1% INJ 10MG/ML (20 ML MDV) ONE; ONDANSETRON 4 MG/2 ML VIAL IVP ONE; ONDANSETRON 4 MG/2 ML VIAL ONE; PHENYLEPHRINE-0.9% NACL SYG 1,000 MCG/10 ML SYRINGE ONE; PROPOFOL 10 MG/ML 20 ML VIAL IV ONE; diphenhydrAMINE 50 MG/ML 1 ML VIAL ONE; fentaNYL (PF) 50 MCG/ML 2 ML AMP ONE
--- NOTE | 2023-07-30 15:36 | P.HPIHPCON ---
History of Present Illness H&P Date: 07/30/23 Chief Complaint: Left-sided ureteral stone This is a 58-year-old female with history of a 1 cm left-sided distal ureteral stone, underwent left-sided stent insertion on July 18. She presents today for left-sided ureteroscopy with holmium laser. Aware of the risks which was but not limited to bleeding, infection, injury to the ureter Consent for Procedure: I have explained the operation/procedure to the patient, including the risks, benefits, side effects, alternative therapies (including not receiving the proposed treatment or service), the likelihood of the patient achieving his/her goals, and potential recuperation problems for the procedure/sedation/analgesia, as well as any blood products, if indicated. I also explained to the patient the risks, benefits and side effects of the alternatives, as well as the risks related to not receiving the proposed procedure, care, treatment, or services. Past Medical History Additional Past Medical History / Comment(s): Current kidney stone. IBS. Low BP. Migraines. History of Any Multi-Drug Resistant Organisms: None Reported Past Surgical History: Appendectomy, Cholecystectomy, Orthopedic Surgery, Uterine Ablation Additional Past Surgical History / Comment(s): Left foot surgery, left ureteral stent placed. Past Anesthesia/Blood Transfusion Reactions: Motion Sickness Additional Past Anesthesia/Blood Transfusion Reaction / Comment(s): "Sensitive to Anesthesia". Past Psychological History: No Psychological Hx Reported Smoking Status: Never smoker Past Alcohol Use History: Occasional Past Drug Use History: None Reported - Past Family History Mother Family Medical History: No Reported History Medications and Allergies Home Medications Medication Instructions Recorded Confirmed Type Bentyl (Unknown Dose) 1 tab PO DAILY PRN 07/18/23 07/27/23 History Desloratadine [Clarinex] 5 mg PO DAILY 07/18/23 07/27/23 History Fremanezumab-Vfrm [Ajovy 225 mg SQ QMONTHLY 07/18/23 07/27/23 History Autoinjector] cephALEXin [Keflex] 750 mg PO Q12HR 7 Days #14 cap 07/19/23 07/27/23 Rx Allergies Allergy/AdvReac Type Severity Reaction Status Date / Time No Known Allergies Allergy Verified 07/30/23 15:29 Surgical - Exam - General no distress, no pain - Eyes normal ocular movement, no pale - ENT normal nares, normal mucosa - Respiratory normal expansion, normal respiratory effort - Abdomen Abdomen: soft, non tender Assessment and Plan Assessment: OR for left-sided ureteroscopy, holmium laser lithotripsy, stone basketing and stent removal
--- NOTE | 2023-07-30 16:00 | XR ---
EXAMINATION TYPE: XR KUB DATE OF EXAM: 07/30/2023 3:15 PM CLINICAL INDICATION:Female, 58 years old with history of N20.1 ureteral stone; [facility] COMPARISON: None. TECHNIQUE: One radiographic view of the abdomen was obtained. FINDINGS: The bowel gas pattern is nonspecific without dilated loops of small or large bowel. There i s no evidence for organomegaly or pneumoperitoneum. The osseous structures are intact. No abnormal calcifications are present. Fecal material and gas are demonstrated throughout the colon and rectum. Left ureteral stent with proximal and distal pigtail torsion skull to be within appropriate position . Comparison with prior CT the calculus within the distal left ureter is not definitively visualized Right upper quadrant cholecystectomy clips. IMPRESSION: Left ureteral stent in place. Previously left pelvic calculus seen on CT not visualized on today's ex am and may have passed.
[2023-07-30 16:01] VITALS: RESP 16
--- NOTE | 2023-07-30 17:56 | P.OP ---
Date of Procedure: 07/30/23 Preoperative Diagnosis: Left ureteral stone Postoperative Diagnosis: Same Procedure(s) Performed: Cystoscopy, left ureteroscopy, holmium laser lithotripsy, stone basketing and stent removal Implants: none Anesthesia: PHYLLIS Surgeon: Heath Oneil Estimated Blood Loss (ml): 5 Pathology: other (left ureteral stone) Condition: stable Disposition: PACU Indications for Procedure: This is a 58-year-old female with history of a 1 cm left-sided distal ureteral stone, underwent left-sided stent insertion on July 18. She presents today for left-sided ureteroscopy with holmium laser. Aware of the risks which was but not limited to bleeding, infection, injury to the ureter Operative Findings: Left mid ureteral stone Description of Procedure: Patient brought to the operating room, general anesthesia was induced. She was prepped and draped in sterile fashion and placed in dorsal lithotomy position. Cystoscopy fitted with a 21-Japanese sheath was inserted per urethra, cystoscopy was performed which showed no abnormality within the bladder. Next the stent was visualized and removed using the stent grasper. Next a semirigid ureteroscope was advanced per urethra and up the left ureteral orifice, a stone was encountered in the mid ureter. Using the holmium laser the stone was fragmented, stone fragment was removed using the stone basket. At this time the ureteroscope was advanced all the way up to the UPJ which showed no additional stones. Pullback ureteroscopy was performed which showed no sizable fragments or injury to the ureter, the bladder was emptied at the end the case. Patient tolerated procedure well was taken to recovery stable condition
[2023-07-30 18:09] VITALS: TEMP 96.8
[2023-07-30 18:46] VITALS: BP 115/61; PULSE 80
--- NOTE | 2023-07-30 20:30 | FL ---
Intraoperative/procedural fluoroscopic services were provided. Total fluoroscopy time is 2.0 seconds with a total of 1 submitted images to PACS. Please see the operative/procedural note for further deta ils. DAP: 0.2136 Gycm2
== END | disposition home or self-care (01) ==
LOC: OR 15:01
PROVIDERS: ATTEND Urology
DX: N20.1 Calculus of ureter (principal); K58.9 Irritable bowel syndrome, unspecified; F12.90 Cannabis use, unspecified, uncomplicated; F10.90 Alcohol use, unspecified, uncomplicated; Z90.49 Acquired absence of other specified parts of digestive tract; Z79.899 Other long term (current) drug therapy
CPT/HCPCS: 81025; 82365; 74018; 52353; J1200; J1100; J0690; J2405; J2001; J3010; J1885; J2704; J2371

== ENCOUNTER → 2023-09-04 | Outpatient (CLI) | payer BC ==
--- NOTE | 2023-09-04 21:42 | XR ---
EXAMINATION TYPE: XR KUB DATE OF EXAM: 09/04/2023 COMPARISON: 07/30/2023 INDICATION: Renal calculus TECHNIQUE: Single view abdomen FINDINGS: There is a normal bowel gas pattern. Psoas margins are normal. No organomegaly is present. No renal or ureteral stones are evident. Mild fecal debris is throughout the colon. Cholecystectomy c lips are present. Previous ureteral stent has been removed. IMPRESSION: 1. Unremarkable Abdomen
== END | disposition home or self-care (01) ==
LOC: RADXRMAIN 10:21
PROVIDERS: ATTEND Urology
DX: N20.0 Calculus of kidney (principal)
CPT/HCPCS: 74018

== ENCOUNTER → 2023-11-09 | Day surgery (SDC) | payer BC ==
[~2023-11-09] MED LIST changes: -DEXAMETHASONE SOD PHOSPHATE 4 MG/ML 1 ML VIAL IVP ONE; -KETOROLAC 15 MG/ML 1 ML VIAL IVP ONE; -KETOROLAC 15 MG/ML 1 ML VIAL ONE; -LACTATED RINGERS 1,000 ML IV ONE; +LIDOCAINE 1% (10MG/ML) FOR IV START INTRADERMA PRN; -LIDOCAINE 1% INJ 10MG/ML (20 ML MDV) ONE; -ONDANSETRON 4 MG/2 ML VIAL IVP ONE; -ONDANSETRON 4 MG/2 ML VIAL ONE; -PHENYLEPHRINE-0.9% NACL SYG 1,000 MCG/10 ML SYRINGE ONE; -diphenhydrAMINE 50 MG/ML 1 ML VIAL ONE; -fentaNYL (PF) 50 MCG/ML 2 ML AMP ONE
[2023-11-09] MEDS: LACTATED RINGERS 1,000 ML IV SCH (12:40)
[2023-11-09] MEDS: ONDANSETRON 4 MG/2 ML VIAL ONE (12:40)
[2023-11-09 12:42] VITALS: RESP 16; TEMP 98
--- NOTE | 2023-11-09 13:31 | P.PCN ---
Date of Procedure: 11/09/23 Procedure(s) Performed: BRIEF HISTORY: Patient is a 58-year-old pleasant female scheduled for an elective colonoscopy as a part of screening for colon cancer. PROCEDURE PERFORMED: Colonoscopy. PREOPERATIVE DIAGNOSIS: Screening for colon cancer. IV sedation per Anesthesia. PROCEDURE: After informed consent was obtained, the patient, was brought into the endoscopy unit. IV sedation was administered by Anesthesia under continuous monitoring. Digital rectal examination was normal. Initially the Olympus CF-160 flexible video colonoscope was then inserted in the rectum, gradually advanced into the cecum without any difficulty. Careful examination was performed as the scope was gradually being withdrawn. Ileocecal valve and the appendiceal orifice were visualized and appeared normal. Prep was excellent. Mucosa of the cecum, ascending colon, transverse colon, descending colon, sigmoid colon, and rectum appeared normal. Retroflexion was performed in the rectum and no lesions were seen. The patient tolerated the procedure well. IMPRESSION: Normal-appearing colon from rectum to cecum with no evidence of colorectal neoplasia. RECOMMENDATIONS: Findings of this examination were discussed with the patient as well as a family. She was advised to have a repeat screening colonoscopy in 10 years..
[2023-11-09 14:38] VITALS: BP 107/69; PULSE 70
== END ==
LOC: ORWHC2ENDO 11:35
PROVIDERS: ATTEND Internal Medicine Gastroenterology
DX: Z12.11 Encounter for screening for malignant neoplasm of colon (principal); K58.9 Irritable bowel syndrome, unspecified; G43.909 Migraine, unspecified, not intractable, without status migrainosus; Z79.899 Other long term (current) drug therapy; Z87.442 Personal history of urinary calculi
CPT/HCPCS: 45378; J2405; J2704

== ENCOUNTER → 2024-10-14 | Outpatient (CLI) | payer BC ==
--- NOTE | 2024-10-15 07:19 | MM ---
Reason for Exam: Screening (asymptomatic). Last mammogram was performed 1 year(s) and 11 month(s) ago. Patient History: Menarche at age 15. First Full-Term at age 28. Postmenopausal. Estrogen, starting at age 52 for 1 year. Risk Values: Autumn 5 year model risk: 1.4%. NCI Lifetime model risk: 7.8%. Prior Study Comparison: 07/14/2020 Bilateral Screening Mammogram, [facility]. 09/05/2021 Bilateral Screening Mammogram, [facility]. 11/21/2022 Bilateral MG 3D screening mammo w/cad, [facility]. Tissue Density: The breasts are heterogeneously dense, which may obscure small masses. Findings: Analyzed By CAD. Right breast: There is no suspicious group of microcalcifications or new suspicious mass. Benign-appearing calcifications right breast. Left breast: There is no suspicious group of microcalcifications or new suspicious mass. Overall Assessment: Benign, BI-RAD 2 Management: Screening Mammogram of both breasts in [address] [facility] will attempt to contact patient to return for supplemental views and ultrasound if indicated. Patient should continue monthly self-breast exams. A clinical breast exam by your physician is recommended on an annual basis. This exam should not preclude additional follow-up of suspicious palpable abnormalities. Note on Autumn scores and lifetime risk: 1. A Autumn score greater than 3% is considered moderate risk. If this is the case, consider specialist referral to assess eligibility for a risk reducing agent. 2. If overall lifetime risk for the development of breast cancer is 20% or higher, the patient may qualify for future screening with alternating mammogram and breast MRI. [facility], , 10/15/2024 7:16 AM. Electronically signed and approved by: Khoi Alcaraz DO
== END | disposition home or self-care (01) ==
LOC: RADMAMWWP 13:53
PROVIDERS: ATTEND Obstetrics & Gynecology
DX: Z12.31 Encounter for screening mammogram for malignant neoplasm of breast (principal); Z78.0 Asymptomatic menopausal state; R92.333 Mammographic heterogeneous density, bilateral breasts
CPT/HCPCS: 77063; 77067

== ENCOUNTER → 2024-10-28 | Outpatient (CLI) | payer BC ==
--- NOTE | 2024-10-28 15:41 | BD ---
EXAMINATION TYPE: Axial Bone Density DATE OF EXAM: 10/28/2024 CLINICAL HISTORY: 59 years old Female. ICD-10 CODE: Z78.0 POST MENOPUASAL WITHOUT HRT , Additional H istory: Height: 64 in Weight: 168 lbs FRAX RISK QUESTIONS: History of Fracture in Adulthood: lt heel fx age 41 RISK FACTORS HISTORY OF: History of Wrist Fracture: lt wrist age 11 EXAM MEASUREMENTS: Bone mineral densitometry was performed using the [employer] System. Bone mineral density as measured about the Lumbar spine is: ----- L1-L4(G/cm2): 0.974 T Score Values are as follows: ----- L1: -2.5 ----- L2: -2.2 ----- L3: -1.4 ----- L4: -1.2 ----- L1-L4: -1.7 Z Score Values are as follows: ----- L1: -1.8 ----- L2: -1.5 ----- L3: -0.7 ----- L4: -0.5 ----- L1-L4: -1.0 Bone mineral density has: Decreased -11.9% since study of: 07/30/2013 Bone mineral density about the R hip (g/cm2): 0.835 Bone mineral density about the L hip (g/cm2): 0.814 T Score values are as follows: -----R Neck: -1.4 -----L Neck: -1.8 -----R Total: -1.4 -----L Total: -1.5 Z Score values are as follows: -----R Neck: -0.5 -----L Neck: -0.9 -----R Total: -0.8 -----L Total: -1.0 Bone mineral density has: Decreased -1.3% since study of: 07/30/2013 FRAX%s: The graph provided illustrates a 14.6% chance for a major osteoporotic fx and a 1.7% chance f or the hips probability for fx in 10 years time. IMPRESSION: Osteopenia (T Score between -2.5 and -1). There is slightly increased risk of fracture and the patient may be considered for treatment. Re-Screen 2-5 years. NOTE: T-SCORE=SD OF THE YOUNG ADULT MEAN. [facility], , 10/28/2024 3:38 PM
== END | disposition home or self-care (01) ==
LOC: RADBDWWP 14:28
PROVIDERS: ATTEND Obstetrics & Gynecology
DX: Z78.0 Asymptomatic menopausal state (principal); M85.89 Other specified disorders of bone density and structure, multiple sites
CPT/HCPCS: 77080